=== PATIENT | male | born 1955 | race Caucasian/White ===

== ENCOUNTER 2017-01-01 05:30 | Observation (INO) | payer OTHER ==
[~2017-01-01] VITALS: Ht 188 cm; Wt 91.4 kg
--- NOTE | 2017-01-01 07:45 | ED ORDER SUMMARY ---
..... Patient: CONSTANCE SALEEM OrderSheet [facility] VisitID: [id number] [place] [address] 61y, M Registration Date/Time: 01/01/2017 ORDER SHEET Weight: 90.2 kg Allergies: No Known Drug Allergy GENERAL ORDERS: Cardiac Panel Stat (06:01/01/2017 Rashmi R.N. per protocol) (Ack 6:22 Rashmi R.N.) (6:22 Rubensnandez R.N.) EKG - ER Stat (:01/01/2017 Rashmi R.N. per protocol) (Ack 6:22 Rashmi R.N.) (6:22 Rashmi R.N.) Wire Products Inspector (Continuous) (:01/01/2017 Laura LOERA) (6:29 Rashmi R.N.) Pulse oximeter (:01/01/2017 Laura LOERA) (6:29 Rashmi R.N.) Oxygen (2 L/min) (NC) (:01/01/2017 Laura LOERA) (6:29 Rashmi R.N.) Chest 1V Urgent (:01/01/2017 Laura LOERA) (6:44 ALawrence ER Tech1) MEDICATION ORDERS: Aspirin PO 324 mg (NOW) (06:01/01/2017 Laura LOEAR) (Ack 6:29 Rashmi R.N.) (6:43 Rashmi R.N.) NitroGLYCERIN SL 0.4 mg (NOW, x3 PRN Chest Pain) (:01/01/2017 Laura LOERA) (Ack 6:29 Rashmi R.N.) (6:43 Rashmi R.N.) GI Cocktail WHITE PO 30 mL with Lidocaine Viscous Mouth/Throat 15 mL, Maalox Plus Oral 15 mL (NOW) (:01/01/2017 Laura LOERA) (Ack 6:50 Rashmi R.N.) (7:00 Rashmi R.N.) IV FLUIDS: IV NS : initial bolus 1000 mL (1000 mL/hr), then none - (NOW) (06:01/01/2017 Laura LOERA) (Ack 6:29 Rashmi R.N.) (6:44 Rashmi R.N.) Dilaudid IV 1 mg (HIGH ALERT MEDICATION, NOW) (07:28 01/01/2017 Laura LOERA) (Ack 7:33 KPajerica-Vik R.N.) (7:52 KPage-Vik R.N.) Toradol IV 30 mg (NOW) (07:01/01/2017 Laura LOERA) (Ack 7:33 KPajerica-Vik R.N.) (7:53 KPajerica-Vik R.N.) ORDER SHEET NOTES: [Electronically signed by Michelle Rowley MD (08:41 01/01/2017)] [Electronically signed by Irene Martinez R.N. (11:09 01/01/2017)] [Electronically locked/signed by Irene Martinez R.N. (11:09 01/01/2017)]
--- NOTE | 2017-01-01 07:45 | ED CLINICAL REPORT ---
Clinical Report - Physicians/Mid Levels [facility] [address] [place] [address] 01/01/2017 5:30 Patient: CONSTANCE SALEEM Time Seen: 05:40. Arrived- By private vehicle. Historian- patient. HISTORY OF PRESENT ILLNESS Chief Complaint: CHEST PAIN. At its maximum, severity described as moderate. When seen in the E.D., severity described as moderate. Modifying factors- worsened by exertion. Not relieved by anything. This started today at about 0500 and is still present. Onset during sleep. It is described as "pain" and it is described as located in the central chest area and radiating to the neck and jaw. No nausea or vomiting. He has had mild difficulty breathing (Patient states it hurts to take a deep breath.). He has experienced mild associated diaphoresis. (Patient states that yesterday while at the office at work, he felt tired just getting up and walking around the office. He states that he swims laps several times a week and that he does so at a high pace. Patient states he went swimming last night and he felt a vague sense of chest pain while swimming. Patient states subsided when he stopped swimming. Patient states that the current episode awoke him from sleep this morning and that he felt that something was wrong. Patient has a history of acid reflux occasionally but it has been years since this is bothering him. Patient states he smokes a cigar on average once daily. He states his diabetes and hypertension under control with medications. He does have a brother who he believes of an [place] at 70 a few months ago. No other family history of vascular disease.). Similar symptoms previously: None. Recent medical care: The patient was seen recently by a health care provider. ( Patient states he was seen by his primary care physician, Dr. Shivam Norris, a few weeks ago.). REVIEW OF SYSTEMS No fever, chills, cough, pedal edema or calf pain. No fainting episodes, headache, sore throat, blurred vision or abdominal pain. No black stools, difficulty with urination, skin rash, enlarged lymph nodes or joint pain. No bloody stools. All systems otherwise negative, except as recorded above. PAST HISTORY Problems: Diabetes Mellitus. Hypertension. Urinary Calculi. Neuropathy. Additional Surgeries: Pancreas at 2 y/o. Medications: ASA Oral. Statins Support Oral. MetFORMIN HCl Oral. Gabapentin Oral 400 mg, 2x a day. Allergies: No Known Drug Allergy. SOCIAL HISTORY Smoker- current status unknown. Occasional alcohol use. No drug use. ADDITIONAL NOTES The nursing notes have been reviewed. PHYSICAL EXAM Vital Signs: 01/01/2017 05:33 BP: 158/92. HR: 61. RR: 13. O2 saturation: 98%. Temp: 97.8 F. Pain level now: 11/04. Have been reviewed. Appearance: Alert. Oriented X3. No acute distress. Eyes: Pupils equal, round and reactive to light. Eyes normal inspection. ENT: Nose normal. Neck: Normal inspection. CVS: Normal heart rate and rhythm. Heart sounds normal. Pulses normal. Respiratory: No respiratory distress. Breath sounds normal. Chest nontender. Abdomen: Soft and nontender. Back: Normal external inspection. Skin: Skin warm and dry. Normal skin color. No rash. Normal skin turgor. Extremities: Extremities exhibit normal ROM. No lower extremity edema. Neuro: (neurologic exam is grossly intact.). LABS, X-RAYS, AND EKG EKG: EKG time: (0535). Normal sinus rhythm. Rate: 62. Normal P waves. First-degree atrioventricular block. Normal QRS complex. Normal axis. Normal ST and T waves, QT and QTc. Prior EKG unavailable. The study has been interpreted contemporaneously by me. The study has been independently viewed by me. The EKG appears to be a good tracing. I agree with and confirm the computer reading of the EKG. Rhythm Strip #1: Time: (0548). Rate= 82. Normal sinus rhythm. Regular rhythm. Narrow QRS complexes. No ectopy. Conduction normal. Normal ST segments and T waves. The study was interpreted by me. Chest X-ray: No acute disease. Normal lung markings present. Normal heart size. Mediastinum normal. Great vessels normal. Soft tissues normal. No infiltrate. No fracture. No bony lesion present. Views: AP (portable). Technique: good. The X-rays were independently viewed by me, interpreted by the radiologist and contemporaneously by me and discussed with the radiologist. Prior films were not available for comparison. Laboratory Tests: CBC w Diff: (PORSHA: 01/01/2017 05:40) ( MsgRcvd 01/01/2017 06:29) Final results Test Result Flag Units (Reference) WHITE BLOOD COUNT 7.9 K/uL (4.5-11.5) RED BLOOD COUNT 4.78 M/uL (4.50-5.90) HEMOGLOBIN 14.2 gm/dL (13.5-17.5) HEMATOCRIT 42.0 % (41.0-53.0) MEAN CELL VOLUME 88 fL (80-100) MEAN CORPUSCULAR HGB 30 pg (26-34) MEAN CORPUSCULAR HGB CONC 34 g/dL (31-37) RED CELL DISTRIBUTION WIDTH 12.6 % (11.6-14.8) PLATELET COUNT 196 K/uL (150-400) NEUTROPHIL % 51.8 % (50-75) LYMPH % 31.2 % (25-40) MONO % 11.1 % (3-14) EOSINOPHIL % 5.2 H % (0-4) BASOPHIL % 0.7 % (0-2) CHEM 13 PANEL: (PORSHA: 01/01/2017 05:40) ( MsgRcvd 01/01/2017 07:14) Final results Test Result Flag Units (Reference) GLUCOSE 190 H mg/dL (70-110) BUN 22 H mg/dL (7-18) CREATININE 0.8 mg/dL (0.6-1.3) Estimated GFR >60 mL/min Estimated GFR- >60 mL/min Note: Persistent reduction over 3 months in eGFR<60 mL/min/1.73 m2 defines CKD. Patients with eGFR values>=60 mL/min/1.73 m2 may also have CKD if evidence ofpersistent proteinuria. Additional information may be foundat www.kidney.org. SODIUM 142 mmol/L (136-145) POTASSIUM 3.5 mmol/L (3.5-5.1) CHLORIDE 105 mmol/L (98-107) CARBON DIOXIDE 26 mmol/L (21-32) CALCIUM 8.6 mg/dL (8.5-10.1) TOTAL PROTEIN 7.1 g/dL (6.4-8.2) ALBUMIN 3.9 g/dL (3.3-5.0) BILIRUBIN, TOTAL 0.3 mg/dL (0.0-1.0) ALKALINE PHOSPHATASE 86 U/L (46-116) AST (SGOT) 22 U/L (15-37) ALT (SGPT) 28 U/L (12-78) MAGNESIUM 2.1 mg/dL (1.8-2.4) CPK 158 U/L (24-260) TROPONIN I <0.05 L ng/mL (0.00-1.5) TROPONIN REFERENCE RANGE:<0.1 NEGATIVE0.1-1.5 INDETERMINANT>1.5 POSITIVE . Pulse Oximetry: 01/01/2017 05:33 O2 saturation: 98%. (FIO2 - room air). Interpretation: normal. PROGRESS AND PROCEDURES Course of Care: patient was given aspirin and nitroglycerin, with no change in symptoms initially. He was also given GI cocktail at that time, which also was unhelpful. I was concerned about this patient's story of increased tiredness yesterday and chest pain with exertion followed by chest pain with radiation into the neck and jaw this morning. Given his risk factors of tobacco abuse, hypertension, diabetes, family history, andhyperlipidemia, I felt it would be prudent to observe him in the hospital for serial troponins and a stress testif workup thus far is negative Patient was agreeable to this plan his initial EKG and troponin were unremarkable. I did speak with Dr. Webb, who agreed to admit the patient to his service. Patient was given Dilaudid and Toradol which did help his pain. He remained hemodynamically stable throughout his stay in the emergency department. Discussed case with hospitalist, (Tracey). Reviewed test results and need for additional work-up. Agreed upon treatment plan and decision to admit. Health care provider will see patient in ED. Patient counseled in person regarding the patient's stable but serious condition, test results, diagnosis and need for additional testing and admission. Concerns were addressed. Old medical records reviewed. Disposition: Admitted to Acute Care. Condition: stable and serious. CLINICAL IMPRESSION Precordial chest pain .12 lead EKG performed. Possible acute myocardial infarction with no ST elevation (NSTEMI). Possible new onset angina. (Electronically signed by Michelle Rowley MD 01/01/2017 8:41)
--- NOTE | 2017-01-01 07:45 | ED ORDER SUMMARY ---
..... Patient: CONSTANCE SALEEM OrderSheet [facility] VisitID: [id number] [place] [address] 61y, M Registration Date/Time: 01/01/2017 ORDER SHEET Weight: 90.2 kg Allergies: No Known Drug Allergy GENERAL ORDERS: Cardiac Panel Stat (06:01/01/2017 Rashmi R.N. per protocol) (Ack 6:22 Rashmi R.N.) (6:22 Rubensnandez R.N.) EKG - ER Stat (:01/01/2017 Rashmi R.N. per protocol) (Ack 6:22 Rashmi R.N.) (6:22 Rashmi R.N.) Upholstery Sewer (Continuous) (:01/01/2017 Laura LOERA) (6:29 Rashmi R.N.) Pulse oximeter (:01/01/2017 Laura LOERA) (6:29 Rashmi R.N.) Oxygen (2 L/min) (NC) (:01/01/2017 Laura LOERA) (6:29 Rashmi R.N.) Chest 1V Urgent (:01/01/2017 Laura LOERA) (6:44 ALawrence ER Tech1) MEDICATION ORDERS: Aspirin PO 324 mg (NOW) (06:01/01/2017 Laura LOERA) (Ack 6:29 Rashmi R.N.) (6:43 Rashmi R.N.) NitroGLYCERIN SL 0.4 mg (NOW, x3 PRN Chest Pain) (:01/01/2017 Laura LOERA) (Ack 6:29 Rashmi R.N.) (6:43 Rashmi R.N.) GI Cocktail WHITE PO 30 mL with Lidocaine Viscous Mouth/Throat 15 mL, Maalox Plus Oral 15 mL (NOW) (:01/01/2017 Laura LOERA) (Ack 6:50 Rashmi R.N.) (7:00 Rashmi R.N.) IV FLUIDS: IV NS : initial bolus 1000 mL (1000 mL/hr), then none - (NOW) (06:01/01/2017 Laura LOERA) (Ack 6:29 Rashmi R.N.) (6:44 Rashmi R.N.) Dilaudid IV 1 mg (HIGH ALERT MEDICATION, NOW) (07:28 01/01/2017 Laura LOERA) (Ack 7:33 KPajerica-Vik R.N.) (7:52 KPage-Vik R.N.) Toradol IV 30 mg (NOW) (07:01/01/2017 Laura LOERA) (Ack 7:33 KPajerica-Vik R.N.) (7:53 KPajerica-Vik R.N.) ORDER SHEET NOTES: [Electronically signed by Michelle Rowley MD (08:41 01/01/2017)] [Electronically signed by Irene Martinez R.N. (11:09 01/01/2017)] [Electronically locked/signed by Irene Martinez R.N. (11:09 01/01/2017)]
--- NOTE | 2017-01-01 07:45 | ED NURSING NOTES ---
Clinical Report - Nurses [facility] [address] [place] [address] 01/01/2017 5:30 Patient: CONSTANCE SALEEM TRIAGE Triage time 05:33. Acuity: LEVEL 2. Chief Complaint: CHEST PAIN. --05:42 Siva Trujillo R.N. 05:33 01/01/17. BP: 158/92. HR: 61. RR: 13. O2 saturation: 98%. Temp: 97.8 F. Pain level now: 11/04. --05:42 Siva Trujillo R.N. Weight: 90.2 kg. Height/Length: 74 inches. BMI: 25.5. --05:39 Siva Trujillo R.N. Medications Gabapentin Oral 400 mg, 2x a day. --05:36 Siva Trujillo R.N. MetFORMIN HCl Oral. --05:38 Siva Trujillo R.N. Statins Support Oral. --05:49 Siva Trujillo R.N. ASA Oral. --05:50 Siva Trujillo R.N. Medication/allergy information source: the patient. --05:42 Siva Trujillo R.N. Allergies No Known Drug Allergy. --05:36 Siva Trujillo R.N. History Arrived by private vehicle. Historian: patient. ( Woke up at 0455 hrs with mid upper chest pain radiating to his jaw with associated SOB. Denies any other associated symptoms. Recent ECG at [facility] for pre-surgery of his knee whiuch was normal.). This started just prior to arrival. Reports experiencing mild sweating episodes. 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 PAST MEDICAL HX: Diabetes mellitus. Hypertension. SURGERY HX: ( left knee replacement; ruptured pancreas at 2 years of age). SOCIAL HX: Current some days smoker (cigar). Alcohol use; consumes beer occasionally. --05:42 Siva Trujillo R.N. PROBLEMS: Hypertension. Urinary Calculi. Neuropathy. --05:37 Siva Trujillo R.N. The following entry was modified by Michelle Rowley MD, 07:46 Reason - duplicate <<STRICKEN ENTRY-- Ureterolithiasis. --07:45 Michelle Rowley MD --END STRIKE>>. Interventions ID band on patient. To room. --05:42 Siva Trujillo R.N. PHYSICAL ASSESSMENT GENERAL / NEURO / PSYCH: Alert. Oriented X 4. Appears in no acute distress. HEENT: Mucous membranes are pink. RESPIRATORY: Mild respiratory distress (during the onset of CP). Respirations not labored. Chest nontender. Breath sounds within normal limits. CVS: Normal sinus rhythm noted. Cardiac rhythm: normal sinus rhythm. Heart sounds within normal limits. Pulses within normal limits. Pulses: right brachial 3+, left brachial 3+, right dorsalis pedis 3+, left dorsalis pedis 3+, right posterior tibial 3+ and left posterior tibial 3+. Capillary refill less than 2 seconds. GI / : Abdomen soft and nontender. EXTREMITIES: No lower extremity edema. SKIN: Skin is warm. Skin is slightly diaphoretic. Normal skin turgor. Skin is non-tender. --05:45 Siva Trujillo R.N. NURSING PROGRESS NOTES 05:42 01/01/2017 Site #1 started via IV in the right forearm with an 20g angiocath; one attempt. Blood drawn: rainbow set. Labeled in the presence of the patient and sent to the lab. Saline lock flushed with 10 mL saline. --05:47 Siva Trujillo R.N. ceramics engineer, pulse oximeter, end tidal CO2 monitor and NIBP monitor placed on patient; mortuary beautician- Lead II; monitor alarms on. EKG time: (05:40 AM). EKG was performed by a tech and shown to the ED physician. Patient ID band checked for patient name and birthdate: family confirmed. Blood samples drawn from the right forearm peripheral IV site (prior to IV fluid start) by nurse per protocol ; labeled in presence of the patient and sent to lab: rainbow set: cardiac enzymes (1st set). Line flushed with 10 mL normal saline post blood draw. Patient gowned. Head of bed elevated 45 degrees. Two patient identifiers checked. Call light placed in reach of patient. Side rails up x 1. Bed placed in lowest position. Brakes of bed on. Patient ready for evaluation- ED physician notified. --05:48 Siva Trujillo R.N. 06:38 01/01/2017 Aspirin PO Tablets 324 mg given. Allergies verified and confirmed 5 rights. --06:43 Siva Trujillo R.N. 06:38 01/01/2017 Nitroglycerin SL Tablets 0.4 mg given. Allergies verified and confirmed 5 rights. --06:43 Siva Trujillo R.N. 06:39 01/01/2017 Started IV Fluids IV NS (Saline); bolus of 1000 mL wide open via site #1 via IV pump. Allergies verified and confirmed 5 rights. IV patency established. IV site checked: no pain, redness, or swelling. IV flushed thoroughly pre- and post-medication administration. --06:44 Siva Trujillo R.N. 06:43 01/01/2017 Nitroglycerin SL Tablets 0.4 mg given. --06:44 Siva Trujillo R.N. 06:38 01/01/17. BP: 146/85. HR: 62. RR: 16. O2 saturation: 100%. Pain level now: 11/04. --06:46 Siva Trujillo R.N. 06:38. Reassessment after medication administered. He is calm and resting quietly. Overall patient status is the same- he states feels the same. RESPIRATORY: No respiratory distress. Breath sounds normal. CVS: The patient reports central chest pain is still present. SKIN: Skin is warm and dry. Skin color within normal limits. --06:46 Siva Trujillo R.N. Reassessment after medication administered. He is resting quietly. Overall patient status is the same- he states feels the same. RESPIRATORY: No respiratory distress. Breath sounds normal. CVS: Normal sinus rhythm noted. SKIN: Skin is warm and dry. Skin color within normal limits. --06:47 Siva Trujillo R.N. 06:43 01/01/17. BP: 124/79. HR: 64. RR: 14. O2 saturation: 98%. Pain level now: 11/04. --06:47 Siva Trujillo R.N. 06:50 01/01/2017 Nitroglycerin SL Tablets 0.4 mg given. Allergies verified and confirmed 5 rights. --06:50 Siva Trujillo R.N. Cardiac rhythm: normal sinus rhythm. Reassessment after medication administered. He is resting quietly. Overall patient status is the same- he states feels the same. RESPIRATORY: No respiratory distress. CVS: The patient reports central chest pain is still present. Normal sinus rhythm noted. SKIN: Skin is warm and dry. Skin color within normal limits. --06:51 Siva Trujillo R.N. 06:50 01/01/17. BP: 118/76. HR: 72. RR: 16. O2 saturation: 95%. Pain level now: 11/04. --06:51 Siva Trujillo R.N. 07:00 01/01/2017 GI COCKTAIL WHITE (Simethicone) PO Oral Suspension 30 mL given. Allergies verified and confirmed 5 rights. --07:00 Siva Trujillo R.N. Cardiac rhythm: normal sinus rhythm. Reassessment after medication administered (GI cocktail). He is calm and resting quietly. Overall patient status is the same- he states feels the same. RESPIRATORY: No respiratory distress. Breath sounds normal. CVS: The patient reports chest pain that is described as dull. SKIN: Skin is warm and dry. Skin color within normal limits. --07:02 Siva Trujillo R.N. 07:01 01/01/17. BP: 124/74. HR: 61. RR: 14. O2 saturation: 95%. Pain level now: 11/04. --07:02 Siva Trujillo R.N. ( Report given to Irene TIAN to assume care.). --07:03 Siva Trujillo R.N. 07:17 01/01/17. ( assumed care of pt, pt in SB/SR on monitor, upper 50's-low 60's, no ectopy noted, pt reports no relief from previous meds given, waiting further poc). --07:54 Irene Martinez R.N. 07:42 01/01/2017 Dilaudid (HYDROmorphone HCl PF) IVP 1 mg given. via site #1. Allergies verified, confirmed 5 rights and sedative warning given to the patient. IV patency established. IV site checked: no pain, redness, or swelling. IV flushed thoroughly pre- and post-medication administration. IVP given by RN. --07:52 Irene Martinez R.N. 07:43 01/01/2017 Toradol IVP 30 mg given. via site #1. Allergies verified and confirmed 5 rights. IV patency established. IV site checked: no pain, redness, or swelling. IV flushed thoroughly pre- and post-medication administration. IVP given by RN. --07:53 Irene Martinez R.N. Patient identifiers checked. Call light placed in reach. Side rails up. Bed placed in lowest position. Brakes of bed on. Patient waiting for admit bed. ( pt given meds as ordered, states "I'm gonna guage my relief on how my lower back feels, it's been bugging me for a while" pts pain, central chest described as "just a dull ache" pt asked for this RN to get his cell phone from his vehicle, lithopone charger Lois went with me to get pts phone. plan is for admit to hospital, pt aware and filling out paperwork for admission). --07:56 Irene Martinez R.N. 07:21 01/01/17. BP: 137/75. HR: 58. RR: 15. O2 saturation: 99%. Pain level now: 11/04. --07:57 Irene Martinez R.N. ( hospitalist at bedside). --08:25 Irene Martinez R.N. 08:25 01/01/17. BP: 114/71. HR: 61 (regular). RR: 15. O2 saturation: 98%. --08:25 Irene Martinez R.N. Patient identifiers checked. Call light placed in reach. Side rails up. Bed placed in lowest position. Brakes of bed on. --08:25 Irene Martinez R.N. Cardiac rhythm: no ectopy noted (SR ventricular rate). --08:25 Irene Martinez R.N. Reassessment after medication administered. ( pt reports no change in pain level after meds given- overview sent to floor, waiting call back to give report). --08:36 Irene Martinez R.N. Locked/Released at 01/01/2017 11:09 by Irene Martinez R.N.
--- NOTE | 2017-01-01 07:45 | ED NURSING NOTES ---
Clinical Report - Nurses [facility] [address] [place] [address] 01/01/2017 5:30 Patient: CONSTANCE SALEEM TRIAGE Triage time 05:33. Acuity: LEVEL 2. Chief Complaint: CHEST PAIN. --05:42 Siva Trujillo R.N. 05:33 01/01/17. BP: 158/92. HR: 61. RR: 13. O2 saturation: 98%. Temp: 97.8 F. Pain level now: 11/04. --05:42 Siva Trujillo R.N. Weight: 90.2 kg. Height/Length: 74 inches. BMI: 25.5. --05:39 Siva Trujillo R.N. Medications Gabapentin Oral 400 mg, 2x a day. --05:36 Siva Trujillo R.N. MetFORMIN HCl Oral. --05:38 Siva Trujillo R.N. Statins Support Oral. --05:49 Siva Trujillo R.N. ASA Oral. --05:50 Siva Trujillo R.N. Medication/allergy information source: the patient. --05:42 Siva Trujillo R.N. Allergies No Known Drug Allergy. --05:36 Siva Trujillo R.N. History Arrived by private vehicle. Historian: patient. ( Woke up at 0455 hrs with mid upper chest pain radiating to his jaw with associated SOB. Denies any other associated symptoms. Recent ECG at [facility] for pre-surgery of his knee whiuch was normal.). This started just prior to arrival. Reports experiencing mild sweating episodes. Treatment ROPEMAN: Took aspirin. PAST MEDICAL HX: Diabetes mellitus. Hypertension. SURGERY HX: ( left knee replacement; ruptured pancreas at 2 years of age). SOCIAL HX: Current some days smoker (cigar). Alcohol use; consumes beer occasionally. --05:42 Siva Trujillo R.N. PROBLEMS: Hypertension. Urinary Calculi. Neuropathy. --05:37 Siva Trujillo R.N. The following entry was modified by Michelle Rowley MD, 07:46 Reason - duplicate <<STRICKEN ENTRY-- Ureterolithiasis. --07:45 Michelle Rowley MD --END STRIKE>>. Interventions ID band on patient. To room. --05:42 Siva Trujillo R.N. PHYSICAL ASSESSMENT GENERAL / NEURO / PSYCH: Alert. Oriented X 4. Appears in no acute distress. HEENT: Mucous membranes are pink. RESPIRATORY: Mild respiratory distress (during the onset of CP). Respirations not labored. Chest nontender. Breath sounds within normal limits. CVS: Normal sinus rhythm noted. Cardiac rhythm: normal sinus rhythm. Heart sounds within normal limits. Pulses within normal limits. Pulses: right brachial 3+, left brachial 3+, right dorsalis pedis 3+, left dorsalis pedis 3+, right posterior tibial 3+ and left posterior tibial 3+. Capillary refill less than 2 seconds. GI / : Abdomen soft and nontender. EXTREMITIES: No lower extremity edema. SKIN: Skin is warm. Skin is slightly diaphoretic. Normal skin turgor. Skin is non-tender. --05:45 Siva Trujillo R.N. NURSING PROGRESS NOTES 05:42 01/01/2017 Site #1 started via IV in the right forearm with an 20g angiocath; one attempt. Blood drawn: rainbow set. Labeled in the presence of the patient and sent to the lab. Saline lock flushed with 10 mL saline. --05:47 Siva Trujillo R.N. office equipment mechanic, pulse oximeter, end tidal CO2 monitor and NIBP monitor placed on patient; patient relations director- Lead II; monitor alarms on. EKG time: (05:40 AM). EKG was performed by a tech and shown to the ED physician. Patient ID band checked for patient name and birthdate: family confirmed. Blood samples drawn from the right forearm peripheral IV site (prior to IV fluid start) by nurse per protocol ; labeled in presence of the patient and sent to lab: rainbow set: cardiac enzymes (1st set). Line flushed with 10 mL normal saline post blood draw. Patient gowned. Head of bed elevated 45 degrees. Two patient identifiers checked. Call light placed in reach of patient. Side rails up x 1. Bed placed in lowest position. Brakes of bed on. Patient ready for evaluation- ED physician notified. --05:48 Siva Trujillo R.N. 06:38 01/01/2017 Aspirin PO Tablets 324 mg given. Allergies verified and confirmed 5 rights. --06:43 Siva Trujillo R.N. 06:38 01/01/2017 Nitroglycerin SL Tablets 0.4 mg given. Allergies verified and confirmed 5 rights. --06:43 Siva Trujillo R.N. 06:39 01/01/2017 Started IV Fluids IV NS (Saline); bolus of 1000 mL wide open via site #1 via IV pump. Allergies verified and confirmed 5 rights. IV patency established. IV site checked: no pain, redness, or swelling. IV flushed thoroughly pre- and post-medication administration. --06:44 Siva Trujillo R.N. 06:43 01/01/2017 Nitroglycerin SL Tablets 0.4 mg given. --06:44 Siva Trujillo R.N. 06:38 01/01/17. BP: 146/85. HR: 62. RR: 16. O2 saturation: 100%. Pain level now: 11/04. --06:46 Siva Trujillo R.N. 06:38. Reassessment after medication administered. He is calm and resting quietly. Overall patient status is the same- he states feels the same. RESPIRATORY: No respiratory distress. Breath sounds normal. CVS: The patient reports central chest pain is still present. SKIN: Skin is warm and dry. Skin color within normal limits. --06:46 Siva Trujillo R.N. Reassessment after medication administered. He is resting quietly. Overall patient status is the same- he states feels the same. RESPIRATORY: No respiratory distress. Breath sounds normal. CVS: Normal sinus rhythm noted. SKIN: Skin is warm and dry. Skin color within normal limits. --06:47 Siva Trujillo R.N. 06:43 01/01/17. BP: 124/79. HR: 64. RR: 14. O2 saturation: 98%. Pain level now: 11/04. --06:47 Siva Trujillo R.N. 06:50 01/01/2017 Nitroglycerin SL Tablets 0.4 mg given. Allergies verified and confirmed 5 rights. --06:50 Siva Trjuillo R.N. Cardiac rhythm: normal sinus rhythm. Reassessment after medication administered. He is resting quietly. Overall patient status is the same- he states feels the same. RESPIRATORY: No respiratory distress. CVS: The patient reports central chest pain is still present. Normal sinus rhythm noted. SKIN: Skin is warm and dry. Skin color within normal limits. --06:51 Siva Trujillo R.N. 06:50 01/01/17. BP: 118/76. HR: 72. RR: 16. O2 saturation: 95%. Pain level now: 11/04. --06:51 Siva Trujillo R.N. 07:00 01/01/2017 GI COCKTAIL WHITE (Simethicone) PO Oral Suspension 30 mL given. Allergies verified and confirmed 5 rights. --07:00 Siva Trujillo R.N. Cardiac rhythm: normal sinus rhythm. Reassessment after medication administered (GI cocktail). He is calm and resting quietly. Overall patient status is the same- he states feels the same. RESPIRATORY: No respiratory distress. Breath sounds normal. CVS: The patient reports chest pain that is described as dull. SKIN: Skin is warm and dry. Skin color within normal limits. --07:02 Siva Trujillo R.N. 07:01 01/01/17. BP: 124/74. HR: 61. RR: 14. O2 saturation: 95%. Pain level now: 11/04. --07:02 Siva Trujillo R.N. ( Report given to Irene TIAN to assume care.). --07:03 Siva Trujillo R.N. 07:17 01/01/17. ( assumed care of pt, pt in SB/SR on monitor, upper 50's-low 60's, no ectopy noted, pt reports no relief from previous meds given, waiting further poc). --07:54 Irene Martinez R.N. 07:42 01/01/2017 Dilaudid (HYDROmorphone HCl PF) IVP 1 mg given. via site #1. Allergies verified, confirmed 5 rights and sedative warning given to the patient. IV patency established. IV site checked: no pain, redness, or swelling. IV flushed thoroughly pre- and post-medication administration. IVP given by RN. --07:52 Irene Martinez R.N. 07:43 01/01/2017 Toradol IVP 30 mg given. via site #1. Allergies verified and confirmed 5 rights. IV patency established. IV site checked: no pain, redness, or swelling. IV flushed thoroughly pre- and post-medication administration. IVP given by RN. --07:53 Irene Martinez R.N. Patient identifiers checked. Call light placed in reach. Side rails up. Bed placed in lowest position. Brakes of bed on. Patient waiting for admit bed. ( pt given meds as ordered, states "I'm gonna guage my relief on how my lower back feels, it's been bugging me for a while" pts pain, central chest described as "just a dull ache" pt asked for this RN to get his cell phone from his vehicle, bellows charger assembler Lois went with me to get pts phone. plan is for admit to hospital, pt aware and filling out paperwork for admission). --07:56 Irene Martinez R.N. 07:21 01/01/17. BP: 137/75. HR: 58. RR: 15. O2 saturation: 99%. Pain level now: 11/04. --07:57 Irene Martinez R.N. ( hospitalist at bedside). --08:25 Irene Martinez R.N. 08:25 01/01/17. BP: 114/71. HR: 61 (regular). RR: 15. O2 saturation: 98%. --08:25 Irene Martinez R.N. Patient identifiers checked. Call light placed in reach. Side rails up. Bed placed in lowest position. Brakes of bed on. --08:25 Irene Martinez R.N. Cardiac rhythm: no ectopy noted (SR ventricular rate). --08:25 Irene Martinez R.N. Reassessment after medication administered. ( pt reports no change in pain level after meds given- overview sent to floor, waiting call back to give report). --08:36 Irene Martinez R.N. Locked/Released at 01/01/2017 11:09 by Irene Martinez R.N.
--- NOTE | 2017-01-01 07:59 | DIAGNOSTIC IMAGING REPORT ---
PROCEDURE: XR CHEST 1 VIEW INDICATION: CHEST PAIN TECHNIQUE: Portable AP view 06:41 a.m. COMPARISON: None. FINDINGS: Lungs are clear. Heart and mediastinum are normal. Thorax is normal. IMPRESSION: 1. Negative chest.
--- NOTE | 2017-01-01 09:01 | History & Physical Report ---
History Chief Complaint Chest pain History of Present Illness This is a 61-year-old white male who developed chest pain at 5 AM this morning once he woke up. Pain is abdominal heaviness severity of 5 of the 10 and in the center of the chest. Pain did not have any radiation, it lasted up to 3 hours and resolved after patient came to emergency and got treatment. Patient had shortness of breath and dizziness along with the chest pain but no sweats or palpitations or nausea or vomiting. No chest pain. Patient History 1. DM (diabetes mellitus) 2. HTN (hypertension) 3. Hyperlipidemia 4. Neuropathy 5. History of total left knee replacement Social History The patient is and has 5 kids. He leaves with his . Smoking: One cigar per day for 10 years, alcohol: None, illicit drugs: None. Family History Relation not specified for: Diabetes FHx: leukemia Heart Disease Hypertension Medications and Allergies Medications Home medications: Aspirin 325 mg daily, valsartan on the 60 mg daily, metformin 500 mg twice a day , Statin 20 mg daily, gabapentin 600 mg twice a day Current Medications Sig/Maribell Start time Last Medication Dose Route Stop Time Status Admin Atorvastatin Calcium 20 MG QPM 01/01 1800 UNV PO Nitroglycerin 0.5 GM Q6HR 01/01 1200 UNV TOP Aspirin 325 MG DAILY 01/01 0900 UNV PO Famotidine/Sodium 50 ML Q12HR 01/01 900 UNV Chloride IV Gabapentin 600 MG BID 01/01 900 UNV PO Losartan Potassium 50 MG DAILY 01/01 900 UNV PO Metformin HCl 500 MG BID 01/01 900 UNV PO Al Hydrox/Mg Hydrox/ 15 ML Q1H PRN 01/01 0845 UNV Simethicone PO Atropine Sulfate 0.5 MG Q3MIN PRN 01/01 0845 UNV IV Lidocaine HCl See Dose ONCE PRN 01/01 0845 UNi Insts (1) IV Magnesium Hydroxide 10 ML DAILY PRN 01/02 0845 UNV PO Morphine Sulfate 2 MG Q3M PRN 01/02 0845 UNV IV Nitroglycerin 0.4 MG Q5M PRN 01/01 0845 UNV SL Dose Instructions: (1)Lidocaine HCl: 1.5 MG/KG Allergies Coded Allergies: NKA (01/01/17) Review of Systems Other Patient lost weight intentionally recently, no difficulty with vision but some hearing loss, no congestion or cough or sore throat or runny nose, no nausea no vomiting no indigestion or abdominal pain normal regular bowel movements, no dysuria or frequency or incontinence, complains of back pain, no headaches no dizziness no tingling or numbness no localized weakness no syncope. Physical Exam General Appearance No acute distress HEENT Normal exam Lungs Clear to auscultation Neck Supple, No JVD, No masses, 2+ carotid pulse wo bruit Cardiovascular Regular rate and rhythm, Normal S1 and S2, No murmurs, gallops, rubs Abdomen Normal bowel sounds, Soft, No tenderness Extremities No cyanosis, No edema, Normal pulses, No tenderness Skin No Rashes, No Significant Lesions Neurological Normal speech, Normal tone, Reflexes 2+ and equal, Cranial nerves intact, Strength 5/5 x4 ext's Psych/Mental Status Mental status normal, Mood normal LAB Results Laboratory Tests 01/01 0540 Chemistry Plasma Sodium (136 - 145 mmol/L) 142 Plasma Potassium (3.5 - 5.1 mmol/L) 3.5 Plasma Chloride (98 - 107 mmol/L) 105 CO2 (Enzymatic) (21 - 32 mmol/L) 26 BUN (7 - 18 mg/dL) 22 Creatinine (0.6 - 1.3 mg/dL) 0.8 Est GFR ( Amer) (mL/min) >60 Est GFR (Non-Af Amer) (mL/min) >60 Glucose (70 - 110 mg/dL) 190 Plasma Calcium (8.5 - 10.1 mg/dL) 8.6 Plasma Magnesium (1.8 - 2.4 mg/dL) 2.1 Total Bilirubin (0.0 - 1.0 mg/dL) 0.3 AST (15 - 37 U/L) 22 ALT (12 - 78 U/L) 28 Alkaline Phosphatase (46 - 116 U/L) 86 Creatine Kinase (24 - 260 U/L) 158 Troponin (0.00 - 1.5 ng/mL) <0.05 Total Protein (6.4 - 8.2 g/dL) 7.1 Albumin (3.3 - 5.0 g/dL) 3.9 Hematology WBC (4.5 - 11.5 K/uL) 7.9 RBC (4.50 - 5.90 M/uL) 4.78 Hgb (13.5 - 17.5 gm/dL) 14.2 Hct (41.0 - 53.0 %) 42.0 MCV (80 - 100 fL) 88 MCH (26 - 34 pg) 30 RDW (11.6 - 14.8 %) 12.6 Neut % (Auto) (50 - 75 %) 51.8 Lymph % (Auto) (25 - 40 %) 31.2 [place] % (Auto) (3 - 14 %) 11.1 Eos % (Auto) (0 - 4 %) 5.2 Baso % (Auto) (0 - 2 %) 0.7 Plt Count, EDTA (150 - 400 K/uL) 196 PUBS MCHC (31 - 37 g/dL) 34 Assessment and Plan Problem List 1. Chest pain Plan We will continue aspirin and we will add Nitropaste topically. We will monitor cardiac enzymes and do regular exercises stress test if they are negative. EKG is normal sinus rhythm 2. DM (diabetes mellitus) Plan Will monitor blood sugar and continue metformin 3. HTN (hypertension) Plan When monitor blood pressure, patient is on losartan 4. Hyperlipidemia Plan Check fasting lipids in the morning, patient is on Lipitor
[2017-01-01 09:49] VITALS: BP 105/70
[2017-01-01] MEDS ORDERED: GABAPENTIN400 MG PO (10:33)
[2017-01-01 10:34] VITALS: BP 190/83
[2017-01-01] MEDS ORDERED: METFORMIN HCL500 M3 PO (10:34)
[2017-01-01] MEDS ORDERED: ASPIRIN 81 LOW81 MG PO (10:35)
[2017-01-01] MEDS ORDERED: STATIN (10:35)
--- NOTE | 2017-01-01 11:09 | ED DISCHARGE INSTRUCTIONS ---
Patient: CONSTANCE SALEEM General Instructions [facility] VisitID: [id number] [address] [place] [address] 61y, M Registration Date/Time: 01/01/2017 Precordial chest pain .12 lead EKG performed. (Electronically signed by Michelle Rowley MD 01/01/2017 8:41)
--- NOTE | 2017-01-01 11:09 | ED MED RECONCILIATION SUMMARY ---
Patient: CONSTANCE SALEEM Medication Reconciliation Report [facility] VisitID: [id number] [address] [place] [address] 61y, M Registration Date/Time: 01/01/2017 Weight: 90.2 kg Height/Length: 74 in. BMI: 25.5 ALLERGIES: No Known Drug Allergy The patient's Home Medications are listed below: THE FOLLOWING MEDICATIONS NEED TO BE RECONCILED: ASA Oral Gabapentin Oral 400 mg, 2x a day MetFORMIN HCl Oral Statins Support Oral The source(s) of the original Home Medication information: patient The following Medications were given to the patient in the Emergency Department: Aspirin [PO] PO 324 mg, administered: 01/01/2017 6:38:00 AM Nitroglycerin [SL] SL 0.4 mg, administered: 01/01/2017 6:38:00 AM Nitroglycerin [SL] SL 0.4 mg, administered: 01/01/2017 6:43:00 AM IV NS IV Fluids bolus 1000 mL wide open, administered: 01/01/2017 6:39:00 AM Nitroglycerin [SL] SL 0.4 mg, administered: 01/01/2017 6:50:00 AM GI COCKTAIL WHITE [PO] PO 30 mL, administered: 01/01/2017 7:00:00 AM Dilaudid [IVP] IVP 1 mg, administered: 01/01/2017 7:42:00 AM Toradol [IVP] IVP 30 mg, administered: 01/01/2017 7:43:00 AM The following Medications were prescribed to the patient: None.
--- NOTE | 2017-01-01 11:09 | ED DISCHARGE INSTRUCTIONS ---
Patient: CONSTANCE SALEEM General Instructions [facility] VisitID: [id number] [address] [place] [address] 61y, M Registration Date/Time: 01/01/2017 Precordial chest pain .12 lead EKG performed. (Electronically signed by Michelle Rowley MD 01/01/2017 8:41)
--- NOTE | 2017-01-01 11:09 | ED MAR SUMMARY ---
..... Medication Administration Record [facility] [address] [place] [address] Patient: CONSTANCE SALEEM Visit ID: [id number] 61y, M Weight: 90.2 kg Height/Length: 74 in BMI: 25.5 ALLERGIES: No Known Drug Allergy Given 06:38 01/01/2017 Siva Trujillo R.N. Medication Administered: ASPIRIN [PO], Dose: 324 mg Tablets PO. Medication Ordered: Aspirin PO 324 mg (NOW). Given 06:38 01/01/2017 Siva Trujillo R.N. Medication Administered: NITROGLYCERIN [SL], Dose: 0.4 mg Tablets SL. Medication Ordered: NitroGLYCERIN SL 0.4 mg (NOW, x3 PRN Chest Pain). Start 06:39 01/01/2017 Siva Trujillo R.N. Medication Administered: IV NS (SALINE), Dose: IV Fluids, Bolus: 1000 mL wide open, Site: #1 right forearm. Medication Ordered: IV NS : initial bolus 1000 mL (1000 mL/hr), then none - (NOW). Given 06:43 01/01/2017 Siva Trujillo R.N. Medication Administered: NITROGLYCERIN [SL], Dose: 0.4 mg Tablets SL. Medication Ordered: NitroGLYCERIN SL 0.4 mg (NOW, x3 PRN Chest Pain). Given 06:50 01/01/2017 Siva Trujillo R.N. Medication Administered: NITROGLYCERIN [SL], Dose: 0.4 mg Tablets SL. Medication Ordered: NitroGLYCERIN SL 0.4 mg (NOW, x3 PRN Chest Pain). Given 07:00 01/01/2017 Siva Trujillo R.N. Medication Administered: GI COCKTAIL WHITE [PO] (SIMETHICONE), Dose: 30 mL Oral Suspension PO. Medication Ordered: GI Cocktail WHITE PO 30 mL with Lidocaine Viscous Mouth/Throat 15 mL, Maalox Plus Oral 15 mL (NOW). Given 07:42 01/01/2017 Irene Martinez R.N. Medication Administered: DILAUDID [IVP] (HYDROMORPHONE HCL PF), Dose: 1 mg IVP, Site: #1 right forearm. Medication Ordered: Dilaudid IV 1 mg (HIGH ALERT MEDICATION, NOW). Given 07:43 01/01/2017 Irene Martinez R.N. Medication Administered: TORADOL [IVP], Dose: 30 mg IVP, Site: #1 right forearm. Medication Ordered: Toradol IV 30 mg (NOW).
--- NOTE | 2017-01-01 11:09 | ED MED RECONCILIATION SUMMARY ---
Patient: CONSTANCE SALEEM Medication Reconciliation Report [facility] VisitID: [id number] [address] [place] [address] 61y, M Registration Date/Time: 01/01/2017 Weight: 90.2 kg Height/Length: 74 in. BMI: 25.5 ALLERGIES: No Known Drug Allergy The patient's Home Medications are listed below: THE FOLLOWING MEDICATIONS NEED TO BE RECONCILED: ASA Oral Gabapentin Oral 400 mg, 2x a day MetFORMIN HCl Oral Statins Support Oral The source(s) of the original Home Medication information: patient The following Medications were given to the patient in the Emergency Department: Aspirin [PO] PO 324 mg, administered: 01/01/2017 6:38:00 AM Nitroglycerin [SL] SL 0.4 mg, administered: 01/01/2017 6:38:00 AM Nitroglycerin [SL] SL 0.4 mg, administered: 01/01/2017 6:43:00 AM IV NS IV Fluids bolus 1000 mL wide open, administered: 01/01/2017 6:39:00 AM Nitroglycerin [SL] SL 0.4 mg, administered: 01/01/2017 6:50:00 AM GI COCKTAIL WHITE [PO] PO 30 mL, administered: 01/01/2017 7:00:00 AM Dilaudid [IVP] IVP 1 mg, administered: 01/01/2017 7:42:00 AM Toradol [IVP] IVP 30 mg, administered: 01/01/2017 7:43:00 AM The following Medications were prescribed to the patient: None.
--- NOTE | 2017-01-01 11:09 | ED MAR SUMMARY ---
..... Medication Administration Record [facility] [address] [place] [address] Patient: CONSTANCE SALEEM Visit ID: [id number] 61y, M Weight: 90.2 kg Height/Length: 74 in BMI: 25.5 ALLERGIES: No Known Drug Allergy Given 06:38 01/01/2017 Siva Trujillo R.N. Medication Administered: ASPIRIN [PO], Dose: 324 mg Tablets PO. Medication Ordered: Aspirin PO 324 mg (NOW). Given 06:38 01/01/2017 Siva Trujillo R.N. Medication Administered: NITROGLYCERIN [SL], Dose: 0.4 mg Tablets SL. Medication Ordered: NitroGLYCERIN SL 0.4 mg (NOW, x3 PRN Chest Pain). Start 06:39 01/01/2017 Siva Trujillo R.N. Medication Administered: IV NS (SALINE), Dose: IV Fluids, Bolus: 1000 mL wide open, Site: #1 right forearm. Medication Ordered: IV NS : initial bolus 1000 mL (1000 mL/hr), then none - (NOW). Given 06:43 01/01/2017 Siva Trujillo R.N. Medication Administered: NITROGLYCERIN [SL], Dose: 0.4 mg Tablets SL. Medication Ordered: NitroGLYCERIN SL 0.4 mg (NOW, x3 PRN Chest Pain). Given 06:50 01/01/2017 Siva Trujillo R.N. Medication Administered: NITROGLYCERIN [SL], Dose: 0.4 mg Tablets SL. Medication Ordered: NitroGLYCERIN SL 0.4 mg (NOW, x3 PRN Chest Pain). Given 07:00 01/01/2017 Siva Trujillo R.N. Medication Administered: GI COCKTAIL WHITE [PO] (SIMETHICONE), Dose: 30 mL Oral Suspension PO. Medication Ordered: GI Cocktail WHITE PO 30 mL with Lidocaine Viscous Mouth/Throat 15 mL, Maalox Plus Oral 15 mL (NOW). Given 07:42 01/01/2017 Irene Martinez R.N. Medication Administered: DILAUDID [IVP] (HYDROMORPHONE HCL PF), Dose: 1 mg IVP, Site: #1 right forearm. Medication Ordered: Dilaudid IV 1 mg (HIGH ALERT MEDICATION, NOW). Given 07:43 01/01/2017 Irene Martinze R.N. Medication Administered: TORADOL [IVP], Dose: 30 mg IVP, Site: #1 right forearm. Medication Ordered: Toradol IV 30 mg (NOW).
[2017-01-01 11:24] VITALS: BP 127/84
[2017-01-01] MEDS ORDERED: CRESTOR20 MG PO (13:30)
[2017-01-01 14:37] VITALS: BP 138/80
[2017-01-01 18:33] VITALS: BP 141/82
--- NOTE | 2017-01-01 20:45 | Provider's Discharge Care Plan ---
Problem, Goal, Plan Problem List 1. Chest pain Goals: Learn about illness, Screening, Complete testing including cardiac stress test Follow-up with cardiology Instructions: Avoid processed foods, Stop smoking 2. DM (diabetes mellitus) Goals: Improved health/wellness, Improve nutrition status, Prevent disease progress, Screening Instructions: Take meds as directed, Avoid processed foods 3. HTN (hypertension) Goals: Improve function, Improve nutrition status, Therapeutic intervention Instructions: Take meds as directed, Stop smoking 4. Hyperlipidemia Goals: Improve nutrition status, Prevent disease progress, Screening Instructions: Follow up as directed 5. Neuropathy Goals: Improve function, Screening Instructions: Follow up as directed, Avoid processed foods
== END 2017-01-01 23:58 | disposition home or self-care (01) ==
LOC: ED SRH 05:30 → TRANS SRH 07:33 → ACUTE2 SRH 07:33
PROVIDERS: ADMIT Emergency Medicine
DX: R07.2 Precordial pain (principal); E11.40 Type 2 diabetes mellitus with diabetic neuropathy, unspecified; Z79.84 Long term (current) use of oral hypoglycemic drugs; I10 Essential (primary) hypertension; E78.5 Hyperlipidemia, unspecified; F17.210 Nicotine dependence, cigarettes, uncomplicated; Z82.49 Family history of ischemic heart disease and other diseases of the circulatory system
CPT/HCPCS: 29230; 90074; 90098; 90100; 90616; 90648; 92610; 92720; 93140; 95059